=== PATIENT | male | born 1955 | race Caucasian/White ===

== ENCOUNTER 2018-04-06 12:47 | Outpatient (REF) | payer MEDICAID, SELFPAY ==
[2018-04-07 10:27] LABS: Lyme Ab w Rflx to Lyme Confirm Negative
== END 2018-04-06 12:48 ==
LOC: NCHCN 12:47
PROVIDERS: PCP Nurse Practitioner Adult Health; Visit Provider Nurse Practitioner Family
DX: T14.8XXA Other injury of unspecified body region, initial encounter (principal); W57.XXXA Bitten or stung by nonvenomous insect and other nonvenomous arthropods, initial encounter
CPT/HCPCS: 86618

== ENCOUNTER 2018-12-23 08:37 | Outpatient (REF) | payer MEDICAID, SELFPAY ==
[2018-12-23 14:29] LABS: ALT 27 U/L (12-78); AST 20 U/L (15-37); Albumin 3.6 g/dL (3.4-5.0); Alkaline Phosphatase 101 U/L (46-116); Anion Gap 8.7 mmol/L (3-11); BUN 17 mg/dL (7-18); Bilirubin, Total 0.7 mg/dL (0.2-1.0); CO2 27.3 mmol/L (21.0-32.0); CREATININE 1.15 mg/dL (0.70-1.30); Calcium 8.9 mg/dL (8.5-10.1); Chloride 107 mmol/L (98-107); Cholesterol 266 mg/dL (50-200); Glucose 93 mg/dL (70-100); HDL Cholesterol 52 mg/dL (40-60); LDL CHOLESTEROL 196 mg/dL (<100); Potassium 4.4 mmol/L (3.5-5.1); Sodium 143 mmol/L (136-145); Total Protein 6.7 g/dL (6.4-8.2); Triglyceride 73 mg/dL (30-150)
== END 2018-12-23 08:57 ==
LOC: NCHCN 08:37
PROVIDERS: PCP Nurse Practitioner Adult Health; Visit Provider Nurse Practitioner Family
DX: E78.5 Hyperlipidemia, unspecified (principal); F10.20 Alcohol dependence, uncomplicated; T14.8XXA Other injury of unspecified body region, initial encounter
CPT/HCPCS: 80053; 80061; 83721

== ENCOUNTER 2019-06-24 12:29 | Outpatient (REF) | payer MEDICAID, SELFPAY ==
[2019-06-24 13:22] LABS: HCT 42.3 % (40.0-50.0); HGB 13.8 g/dL (13.5-17.5); Mean Corp. HGB Concentration 32.6 g/dL (32.0-36.0); Mean Corpuscular Hemoglobin 30.6 pg (27.0-33.0); Mean Corpuscular Volume 93.8 fL (80-95); Mean Platelet Volume 10.2 fL (8.0-11.0); Platelet Count 317 x1000/uL (130-400); RBC 4.51 m/cumm (4.50-6.00); White Blood Cell Count 6.35 k/cumm (4.4-10.8)
[2019-06-24 14:20] LABS: ALT 31 U/L (16-63); AST 16 U/L (15-37); Albumin 3.7 g/dL (3.4-5.0); Alkaline Phosphatase 91 U/L (46-116); BUN 13 mg/dL (7-18); Bilirubin, Total 0.5 mg/dL (0.2-1.0); CREATININE 1.03 mg/dL (0.70-1.30); Calcium 8.9 mg/dL (8.5-10.1); Calculated LDL 173 mg/dL; Chloride 107 mmol/L (98-107); Cholesterol 249 mg/dL (50-200); Glucose 99 mg/dL (70-100); HDL Cholesterol 49 mg/dL (40-60); Potassium 4.7 mmol/L (3.5-5.1); Sodium 144 mmol/L (136-145); Total Protein 6.8 g/dL (6.4-8.2); Triglyceride 137 mg/dL (30-150)
== END 2019-06-24 12:49 ==
LOC: NCHCN 12:29
PROVIDERS: PCP Nurse Practitioner Family; Visit Provider Nurse Practitioner Family
DX: E78.5 Hyperlipidemia, unspecified (principal)
CPT/HCPCS: 80053; 80061; 85027

== ENCOUNTER 2019-07-27 09:41 | Outpatient (CLI) | payer MEDICAID, SELFPAY ==
--- NOTE | 2019-07-27 09:50 | DI.RAD_ITS ---
EXAM: XR SHOULDER LT COMPLETE 2+V INDICATION: pain. COMPARISON: No exams were available for comparison TECHNIQUE: 2D digital imaging was performed. FINDINGS: There is moderate spurring at the AC joint and undersurface of the acromion. There is mild spurring at the glenoid and greater tuberosity. The humeral head appears normally position. IMPRESSION: [id number] degenerative changes.
== END 2019-07-27 10:01 ==
PROVIDERS: PCP Nurse Practitioner Family; Visit Provider Orthopaedic Surgery
DX: M25.512 Pain in left shoulder (principal); M19.012 Primary osteoarthritis, left shoulder
CPT/HCPCS: 73030

== ENCOUNTER 2019-08-13 09:27 | Outpatient (CLI) | payer MEDICAID, SELFPAY ==
--- NOTE | 2019-08-13 11:05 | DI.RAD_ITS ---
EXAM: XR EYE FOREIGN BODY CLINICAL HISTORY: PRE MRI CLEARANCE, H/O EXPOSURE TO METAL TECHNIQUE: Thank you COMPARISON: No exams were available for comparison FINDINGS: Two views were obtained to exclude intra orbital metallic foreign body. No metallic foreign body see n. IMPRESSION:
== END 2019-08-13 09:47 ==
PROVIDERS: PCP Nurse Practitioner Family; Visit Provider Orthopaedic Surgery
DX: Z13.88 Encounter for screening for disorder due to exposure to contaminants (principal)
CPT/HCPCS: 70030